=== PATIENT | male | born 1945 | race Caucasian/White ===

== ENCOUNTER 2022-05-13 03:08 | Emergency (ER) | payer MEDICARE, BC ==
[2022-05-13] MEDS: Take Home: Cyclobenzaprine 10 MG Tab, 4 Tab Pack PO ONE (03:33)
[2022-05-13] MEDS: Orphenadrine 60 MG/2 ML Inj IM ONE (03:34)
[2022-05-13] MEDS: Ketorolac 30 MG/ML SDV IM ONE (03:34)
[2022-05-13] MEDS: Take Home: traMADol 50 MG, 4 Tab Pack PO ONE (03:41)
== END 2022-05-13 04:05 | disposition home or self-care (01) ==
LOC: VM.ED 03:08
DX: M62.830 Muscle spasm of back (principal); K21.9 Gastro-esophageal reflux disease without esophagitis; Z79.899 Other long term (current) drug therapy
CPT/HCPCS: 96372; 99283; A9270-GY; J1885; J2360

== ENCOUNTER 2024-08-09 17:18 | Emergency (ER) | payer MEDICARE, BC ==
[2024-08-09] MEDS: Acetaminophen 500 MG Tab PO ONE (17:53)
== END 2024-08-09 18:19 | disposition home or self-care (01) ==
LOC: VM.ED 17:18
DX: U07.1 COVID-19 (principal); Z79.899 Other long term (current) drug therapy
CPT/HCPCS: 71046; 87428-QW; 99283; A9270-GY